=== PATIENT | male | born 1950 | race Two or more races ===

== ENCOUNTER 2024-09-26 09:15 | Inpatient (IN) | payer OTHER ==
[~2024-09-26] VITALS: Ht 172.7 cm; Wt 82.1 kg
[2024-09-26 11:19] VITALS: BP 164/89
[2024-09-26] MEDS ORDERED: ZESTRIL40 M1 PO (11:20)
[2024-09-26] MEDS ORDERED: SYNTHROID75 MCG PO (11:20)
[2024-09-26] MEDS ORDERED: TOPROL XL50 M1 PO (11:21)
[2024-09-26] MEDS ORDERED: ZYLOPRIM100 M1 PO (11:21)
[2024-09-26] MEDS ORDERED: PRAVASTATIN SOD20 MG PO (11:22)
[2024-09-26 12:24] LABS: BASO % 0.1 % (0.1-1.2); EOS # 0.22 (0.04-0.54); EOS % 2.9 % (0.7-7.0); HEMATOCRIT 44.9 % (40.1-51.0); HEMOGLOBIN 15.8 g/dL (13.7-17.5); LYMPH % 17.2 % (19.3-53.1); MEAN CORPUSCULAR HEMOGLOBIN 31.8 pg (25.6-32.2); MONO % 7.9 % (4.7-12.5); NEUT # 5.41 (1.56-6.13); NEUT % 71.5 % (34.0-71.1); PLATELET COUNT 160 K/uL (163-369); RED BLOOD COUNT 4.97 M/uL (4.63-6.08); RED CELL DISTRIBUTION WIDTH 13.6 % (11.6-14.4)
[2024-09-26 12:29] LABS: PH,URINE 6.5 (5.0-8.0); URINE APPEARANCE Clear; URINE BILIRRUBIN Negative (NEGATIVE); URINE BLOOD Negative; URINE COLOR Yellow; URINE GLUCOSE Negative (NEGATIVE); URINE KETONE Negative (NEGATIVE); URINE LEUKOCYTE Negative; URINE NITRATE Negative; URINE PROTEIN Negative (NEGATIVE)
[2024-09-26 12:30] LABS: URINE BACTERIA 1.2 uL (0.0-1933); URINE EPITHELIAL CELLS 0.9 uL (0.0-38.8); URINE RBC 1.4 uL (0.0-20.8); URINE WBC 1.5 uL (0.0-23.2)
[2024-09-26 13:00] LABS: INR 1.1; PARTIAL THROMBOPLASTIN TIME 25.6 SECONDS (22.0-34.0); PROTHROMBIN TIME 11.9 SECONDS (9.0-11.5)
[2024-09-26 13:10] LABS: BILIRUBIN TOTAL 1.23 mg/dL (0.3-1.2); CREATININE SERUM 1.13 mg/dL (0.70-1.30); GFR 63.79; GLOBULINA 3.1 G/DL (2.4-3.5); POTASSIUM 3.67 mEq/L (3.5-5.1); TOTAL PROTEIN 7.1 gm/dL (6.4-8.2)
[2024-10-06] MEDS ORDERED: CEFTRIAXONE SODIUM 2,000 MG VIAL ONE (10:24)
[2024-10-06] MEDS ORDERED: METRONIDAZOLE/SODIUM CHLORIDE 500 MG/100 ML PIGGYBACK IV ONE ×2 (10:24→17:42)
[2024-10-06] MEDS ORDERED: BUPIVACAINE HCL 30 ML VIAL IJ ONE (12:00)
[2024-10-06] MEDS ORDERED: LIDOCAINE HCL 1%/EPINEPHRINE 20ML VIAL IJ ONE (12:15)
[2024-10-06] MEDS ORDERED: OxyCODONE HCL 5 MG TABLET (ROXICODONE) PO PRN (13:30)
[2024-10-06] MEDS ORDERED: ONDANSETRON HCL 2 MG/ML VIAL IV PRN (13:30)
[2024-10-06] MEDS ORDERED: DEXTROSE 50 % IN WATER 0.5 G/ML DISP.SYRIN IV PRN (13:30)
[2024-10-06] MEDS ORDERED: 0.9 % SODIUM CHLORIDE 1,000 ML IV SCH (13:30)
[2024-10-06] MEDS ORDERED: MORPHINE SULFATE 4 MG/ML CARTRIDGE IV PRN (13:30)
[2024-10-06] MEDS ORDERED: ACETAMINOPHEN 500 MG GEL..CAP PO SCH (14:00)
[2024-10-06] MEDS ORDERED: MORPHINE SULFATE 4 MG/ML VIAL IV ONE (14:45)
[2024-10-06] MEDS ORDERED: METRONIDAZOLE/SODIUM CHLORIDE 500 MG/100 ML PIGGYBACK IV SCH (17:00)
[2024-10-06] MEDS ORDERED: HYOSCYAMINE SULFATE 0.125 MG TAB.SUBL SL SCH (17:00)
[2024-10-06] MEDS ORDERED: POLYETHYLENE GLYCOL 3350 17 GM BLIST.PACK PO SCH (17:00)
[2024-10-06] MEDS ORDERED: GABAPENTIN 300 MG CAPSULE PO SCH (17:00)
[2024-10-06 19:30] VITALS: BP 166/78; O2SAT 96
[2024-10-06] MEDS ORDERED: CELECOXIB 200 MG CAPSULE PO SCH (21:00)
[2024-10-06] MEDS ORDERED: FAMOTIDINE/PF 20 MG/2 ML VIAL IV PUSH SCH (21:00)
[2024-10-07] VITALS: BP 159/70; O2SAT 96
[2024-10-07] MEDS ORDERED: LEVOTHYROXINE SODIUM 75 MCG TABLET PO SCH (06:00)
[2024-10-07 07:41] LABS: BASO % 0.3 % (0.1-1.2); EOS # 0.02 (0.04-0.54); EOS % 0.1 % (0.7-7.0); HEMATOCRIT 45.6 % (40.1-51.0); HEMOGLOBIN 15.9 g/dL (13.7-17.5); LYMPH # 0.72 (1.18-3.74); LYMPH % 4.8 % (19.3-53.1); MEAN CORPUSCULAR HEMOGLOBIN 32.1 pg (25.6-32.2); MONO # 0.89 (0.24-0.82); NEUT # 13.17 (1.56-6.13); NEUT % 88.4 % (34.0-71.1); PLATELET COUNT 134 K/uL (163-369); RED BLOOD COUNT 4.95 M/uL (4.63-6.08); RED CELL DISTRIBUTION WIDTH 13.5 % (11.6-14.4)
[2024-10-07 08:00] VITALS: BP 99/53; O2SAT 95
[2024-10-07 08:26] LABS: ALBUMIN 3.3 gm/dL (3.4-5.0); CALCIUM 8.5 mg/dL (8.5-10.1); CREATININE SERUM 1.15 mg/dL (0.70-1.30); GFR 62.51; MAGNESIUM 1.9 mg/dL (1.8-2.4); PHOSPHOROUS 2.9 mg/dL (2.5-4.9); POTASSIUM 4.02 mEq/L (3.5-5.1)
[2024-10-07] MEDS ORDERED: METOPROLOL SUCCINATE 50 MG TAB.SR.24H PO SCH (09:00)
[2024-10-07] MEDS ORDERED: LISINOPRIL 40 MG TABLET PO SCH (09:00)
[2024-10-07] MEDS ORDERED: ENOXAPARIN SODIUM 40 MG/0.4 ML SYRINGE SUBCUTANEO SCH (17:00)
[2024-10-07 19:32] VITALS: BP 94/57; O2SAT 95
[2024-10-08 00:40] VITALS: BP 123/65; O2SAT 96
[2024-10-08 08:00] VITALS: BP 114/67; O2SAT 95
[2024-10-08] MEDS ORDERED: ENOXAPARIN SODIUM 40 MG/0.4 ML SYRINGE SUBCUTANEO SCH (09:00)
[2024-10-08 12:21] LABS: BASO % 0.4 % (0.1-1.2); EOS # 0.35 (0.04-0.54); EOS % 3.2 % (0.7-7.0); HEMATOCRIT 42.6 % (40.1-51.0); HEMOGLOBIN 14.7 g/dL (13.7-17.5); LYMPH # 0.85 (1.18-3.74); LYMPH % 7.7 % (19.3-53.1); MONO # 0.65 (0.24-0.82); MONO % 5.9 % (4.7-12.5); NEUT # 9.15 (1.56-6.13); NEUT % 82.3 % (34.0-71.1); RED BLOOD COUNT 4.59 M/uL (4.63-6.08); RED CELL DISTRIBUTION WIDTH 13.8 % (11.6-14.4)
[2024-10-08 12:27] LABS: PLATELET COUNT 119 K/uL (163-369)
[2024-10-08 16:48] VITALS: BP 107/63; O2SAT 96
[2024-10-09 01:00] VITALS: BP 141/76; O2SAT 99
[2024-10-09 08:00] VITALS: BP 139/71; O2SAT 96
[2024-10-09] MEDS ORDERED: PEPCID AC20 MG PO (09:43)
[2024-10-09] MEDS ORDERED: HYOSCYAMINE0.125 M1 SL (09:43)
[2024-10-09] MEDS ORDERED: TRAM1TAB98 PO (09:43)
== END 2024-10-09 14:29 | disposition home or self-care (01) | DRG 331 ==
LOC: SURH 10-06 09:15 → O/R 10-06 09:52 → SURH 10-06 13:45
PROVIDERS: ADMIT Surgery; ATTEND Surgery
PROC: 07BB4ZZ Excision of Mesenteric Lymphatic, Percutaneous Endoscopic Approach (ICD-10-PCS; 2024-10-06)
PROC: 0DTG4ZZ Resection of Left Large Intestine, Percutaneous Endoscopic Approach (ICD-10-PCS; principal; 2024-10-06 13:45)
DX: C18.6 Malignant neoplasm of descending colon (principal); R59.0 Localized enlarged lymph nodes